=== PATIENT | female | born 1940 | race Asian ===

== ENCOUNTER 2017-11-10 10:40 | Emergency (ER) | payer MEDICARE, BC | END 2017-11-10 12:08 | disposition home or self-care (01) | LOC: E/R 10:40 | DX: S00.03XA Contusion of scalp, initial encounter (principal); W01.0XXA Fall on same level from slipping, tripping and stumbling without subsequent striking against object, initial encounter; Y92.002 Bathroom of unspecified non-institutional (private) residence as the place of occurrence of the external cause | CPT/HCPCS: 70450; 99284-25 ==